=== PATIENT | male | born 1980 | race Caucasian/White ===

== ENCOUNTER 2020-09-14 09:20 | Emergency (ER) | payer BC, OTHER ==
[~2020-09-14] VITALS: Ht 193 cm; Wt 163.3 kg
[2020-09-14] MEDS ORDERED: PROVENTIL HFA6.7 GM INH (13:10)
== END 2020-09-14 13:50 | disposition home or self-care (01) ==
LOC: ER1 09:20
DX: Z23 Encounter for immunization (principal); U07.1 COVID-19; I10 Essential (primary) hypertension
CPT/HCPCS: 71045; 99283; M0239

== ENCOUNTER → 2020-10-02 | Outpatient (CLI) | payer BC, OTHER ==
[~2020-10-02] MED LIST: PROVENTIL HFA6.7 GM INH
== END ==
LOC: KOH-I 14:00
DX: J32.9 Chronic sinusitis, unspecified (principal); J34.2 Deviated nasal septum
CPT/HCPCS: 70486